=== PATIENT | female | born 1965 | race Hispanic/Latino ===

== ENCOUNTER 2018-04-13 16:35 | Emergency (ER) | payer OTHER ==
[~2018-04-13] VITALS: Ht 162.6 cm; Wt 72.6 kg
[2018-04-13] MEDS ORDERED: KETOROLAC TROMETHAMINE 60 MG/2 ML VIAL IM ONE (17:30)
[2018-04-13] MEDS ORDERED: ALBUTEROL SULF 0.083% NEB SOLN 3 ML NEB NEB STA (17:32)
--- NOTE | 2018-04-13 18:20 | Diagnostic Imaging Report ---
PROCEDURE: Frontal and lateral views of the chest. COMPARISON: None. INDICATIONS: COUGH FINDINGS: Lines/tubes: None. Lungs: The lungs are well inflated and clear. There is no evidence of pneumonia or pulmonary edema. Pleura: There is no pleural effusion or pneumothorax. Heart and mediastinum: The heart and the mediastinum are normal. Bones: No acute bony abnormality. IMPRESSION: No acute cardiopulmonary disease. Dictated by: Stephen Robles M.D. on 04/13/2018 at 18:24 Electronically approved by: Stephen Robles M.D. on 04/13/2018 at 18:24
[2018-04-13 18:51] VITALS: BP 153/89
== END 2018-04-13 19:01 | disposition home or self-care (01) ==
LOC: ER 16:35
DX: R05 Cough (principal); J20.9 Acute bronchitis, unspecified; R51 Headache
CPT/HCPCS: 71046; 99283; J1885

== ENCOUNTER → 2019-06-06 | Outpatient (CLI) | payer OTHER ==
--- NOTE | 2019-06-06 11:14 | Diagnostic Imaging Report ---
Chest, 2 views, 06/06/2019. History: Annual physical, no complaints. Comparison: None available. Findings: The cardiomediastinal silhouette and pulmonary vasculature are within normal limits. The lungs are clear without evidence of consolidation or pleural effusion. There are no acute osseous or soft tissue abnormalities. Impression: No acute cardiopulmonary abnormality. Signed by: Shayne Rodriguez on 06/06/2019 11:11 AM
== END ==
LOC: RAD 10:47
PROVIDERS: ATTEND Internal Medicine
DX: Z00.00 Encounter for general adult medical examination without abnormal findings (principal); R10.32 Left lower quadrant pain
CPT/HCPCS: 71046

== ENCOUNTER → 2019-06-13 | Outpatient (CLI) | payer OTHER ==
--- NOTE | 2019-06-13 10:29 | Diagnostic Imaging Report ---
EXAM: US ABDOMEN COMPLETE DATE: 06/13/2019 9:08 AM INDICATION: Left lower quadrant pain COMPARISON: None FINDINGS: The visualized pancreas appears unremarkable. The liver is normal in size measuring 15.9 cm in length. The hepatic parenchyma is homogeneous without evidence for focal abnormality. The main portal vein is patent with antegrade flow and diameter of 0.8 cm, within normal limits. The gallbladder is unremarkable. There is no evidence for cholelithiasis, gallbladder wall thickening, or pericholecystic fluid. There is no intra or extra hepatic biliary ductal dilatation. The common bile duct measures 4 mm. Sonographic Crowe's sign is negative. The kidneys are normal in size measuring 10.1 cm in length on the right and 10.3 cm in length on the left. Cortical thickness and echogenicity are within normal limits bilaterally. There is no evidence for solid renal mass, hydronephrosis, or shadowing calculi. The spleen is normal in size measuring 8.3 cm in length and demonstrates an unremarkable sonographic appearance. The visualized portions of the IVC and aorta are within normal limits. There is no ascites or pleural fluid visualized. IMPRESSION: Unremarkable abdominal ultrasound examination. Signed by: Dr. Mert Dumont MD on 06/13/2019 10:25 AM
--- NOTE | 2019-06-13 10:32 | Diagnostic Imaging Report ---
EXAM: US PELVIS COMPLETE NON OB DATE: 06/13/2019 9:09 AM INDICATION: Left lower quadrant pain COMPARISON: None FINDINGS: Transabdominal images were obtained of the pelvis. The uterus is surgically absent. The bilateral ovaries could not be visualized transabdominally which may be secondary to their small size and prominent adjacent bowel gas. No abnormal adnexal mass is identified. No free fluid is visualized. IMPRESSION: Status post hysterectomy. Nonvisualization of the ovaries as discussed above. Signed by: Dr. Mert Dumont MD on 06/13/2019 10:29 AM
--- NOTE | 2019-06-13 10:53 | Diagnostic Imaging Report ---
EXAM: BONE MINERAL DENSITY HISTORY: Bone mineralization evaluation COMPARISON: None DISCUSSION: Evaluation of the left hip and lumbar spine was performed utilizing DEXA Hologic bone densitometer. The study is technically adequate. Left hip femoral neck bone mineral density: 0.74 g/cm2, T-score is -1.1, Z-score is -0.3. Left hip total bone mineral density: 0.88 g/cm2, T-score is -0.6, Z-score is 0.0. Lumbar spine total bone mineral density: 0.87 gm/cm2, T-score is -1.6, Z-score is -0.7. 10 year fracture risk major osteoporotic fracture 2.6% and hip fracture 0.1%. Impression: Bone mineralization by WHO Classification is low bone mass/osteopenia, the fracture risk is increased. Signed by: Dr. Isaias Macdonald M.D. on 06/13/2019 10:50 AM
--- NOTE | 2019-06-13 15:31 | Diagnostic Imaging Report ---
EXAM: CHEST 2 VIEWS DATE: 06/13/2019 9:10 AM INDICATION: Annual physical examination COMPARISON: 06/06/2019 FINDINGS: The trachea is midline. The lungs are symmetrically expanded without evidence for focal consolidation, pneumothorax, or significant pleural effusion. The cardiomediastinal silhouette and pulmonary vasculature are within normal limits. No acute osseous abnormalities identified. IMPRESSION: No acute cardiopulmonary process identified. Signed by: Dr. Mert Dumont MD on 06/13/2019 3:27 PM
--- NOTE | 2019-06-28 09:13 | Diagnostic Imaging Report ---
#[id number] - MGSCRBIL #BILATERAL DIGITAL SCREENING MAMMOGRAM WITH CAD: 06/13/2019 CLINICAL: Routine screening. Comparison is made to exams dated: 05/18/2013 mammogram, 05/18/2013 ultrasound and 05/09/2013 mammogram - [facility]. Current study contains 4 films. There are scattered fibroglandular elements in both breasts. Current study was also evaluated with a Computer Aided Detection (CAD) system. No significant masses, calcifications, or other findings are seen in either breast. IMPRESSION: NEGATIVE There is no mammographic evidence of malignancy. A 1 year screening mammogram is recommended. The patient will be notified by letter of the results. PRATIMA SAEZ M.D. ct/penrad:06/27/2019 14:53:59 Act Tutor: Haley NIELSEN(R)(M), [facility] letter sent: Normal Exam Mammogram BI-RADS: 1 Negative
== END ==
LOC: US 08:51
PROVIDERS: ATTEND Internal Medicine
DX: Z12.31 Encounter for screening mammogram for malignant neoplasm of breast (principal); Z13.820 Encounter for screening for osteoporosis; R10.32 Left lower quadrant pain; Z00.00 Encounter for general adult medical examination without abnormal findings
CPT/HCPCS: 71046; 76700; 76856; 77067; 77080